=== PATIENT | male | born 1970 | race Caucasian/White ===

== ENCOUNTER 2017-06-30 09:22 | Emergency (ER) | payer BC ==
[2017-06-30] MEDS ORDERED: NS 0.9% 1000 ML* 1,000 ML IV ONE (11:38)
[2017-06-30 12:11] LABS: ABS Basophils 0.1 10^3/ul (0-0.2); ABS Eosinophils 0.1 10^3/ul (0-0.6); ABS Lymphocytes 1.4 10^3/ul (1.0-4.8); ABS Neutrophils 7.5 10^3/ul (1.5-7.7); ABS Nucleated RBC 0 10^3/ul; Eosinophil % 0.9 % (0-6); Hematocrit 48 % (42-52); Hemoglobin 16.9 g/dl (14.0-18.0); Mean Corpuscular HGB Conc 35 g/dl (31-36); Mean Corpuscular Hemoglobin 33 pg (27-31); Mean Corpuscular Volume 93 fL (80-94); Mean Platelet Volume 8.2 um3 (7.4-10.4); Nucleated Red Blood Cells % 0.3; Platelet Count 280 10^3/ul (150-450); Red Blood Count 5.17 10^6/ul (4.0-5.4); Red Cell Distribution Width 13 % (10.5-15)
[2017-06-30 12:32] LABS: EGFR Non-African American 118.9 (>60)
[2017-06-30 16:34] VITALS: BP 159/92
--- NOTE | 2017-06-30 17:03 | ED ---
Harvey Gamez Jennifer, scribed for Jesus Gallardo MD on 06/30/17 at 1136 . GI/ HPI - HPI Summary HPI Summary: The patient is a 47 y/o M who presents with water diarrhea and cramping for the past 5 days. The patient denies nausea and recent traveling. 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 - History of Current Complaint Chief Complaint: EDNauseaVomitDiarrh Time Seen by Provider: 06/30/17 09:44 Stated Complaint: DIARRHEA Hx Obtained From: Patient Onset/Duration: Started Days Ago - 5 days, Still Present Timing: Constant Severity: Mild Current Severity: Mild Pain Intensity: 0 Associated Signs and Symptoms: Positive: Other: - diarrhea, abd cramping. NEGATIVE: nausea Aggravating Factor(s): Nothing Alleviating Factor(s): Nothing - Allergy/Home Medications Allergies/Adverse Reactions: Allergies Allergy/AdvReac Type Severity Reaction Status Date / Time No Known Allergies Allergy Verified 06/30/17 09:38 PMH/Surg Hx/FS Hx/Imm Hx Endocrine/Hematology History: Denies: Hx Diabetes Cardiovascular History: Denies: Hx Hypertension Infectious Disease History: No Infectious Disease History: Denies: Traveled Outside the [place] in Last 30 Days - Family History Known Family History: Negative: Renal Disease - Social History Alcohol Use: Unknown Hx Substance Use: No Substance Use Type: Reports: None Smoking Status (MU): Unknown if Ever Smoked Review of Systems Negative: Fever Positive: Abdominal Pain - cramping, Diarrhea. Negative: Nausea All Other Systems Reviewed And Are Negative: Yes Physical Exam - Summary Physical Exam Summary: Appearance: The patient is well-nourished in no acute distress and in no acute pain. Skin: The skin is warm and dry and skin color reflects adequate perfusion. HEENT: The head is normocephalic and atraumatic. The pupils are equal and reactive. The conjunctivae are clear and without drainage. Nares are patent and without drainage. Mouth reveals moist mucous membranes and the throat is without erythema and exudate. The external ears are intact. The ear canals are patent and without drainage. The tympanic membranes are intact. Neck: the neck is supple with full range of motion and non-tender. There are no carotid bruits. There is no neck vein distension. Respiratory: Chest is non-tender. Lungs are clear to auscultation and breath sounds are symmetrical and equal. Cardiovascular: Heart is regular rate and rhythm. There is no murmur or rub auscultated. There is no peripheral edema and pulses are symmetrical and equal. Abdomen: The abdomen is soft and non-tender. There are normal bowel sounds heard in all four quadrants and there is no organomegaly palpated. Musculoskeletal: There is no back tenderness noted. Extremities are non-tender with full range of motion. There is good capillary refill. There is no peripheral edema or calf tenderness elicited. Neurological: Patient is alert and oriented to person, place and time. The patient has symmetrical motor strength in all four extremities. Cranial nerves are grossly intact. Deep tendon reflexes are symmetrical and equal in all four extremities. Psychiatric: The patient has an appropriate affect and does not exhibit any anxiety or depression. Triage Information Reviewed: Yes Vital Signs On Initial Exam: Initial Vitals Temp Pulse Resp BP Pulse Ox 98 F 110 20 114/72 98 06/30/17 09:33 06/30/17 09:33 06/30/17 09:33 06/30/17 09:33 06/30/17 09:33 Vital Signs Reviewed: Yes Diagnostics - Vital Signs Vital Signs Temp Pulse Resp BP Pulse Ox 06/30/17 09:33 98 F 110 20 114/72 98 - Laboratory Lab Results: Lab Results 06/30/17 06/30/17 Range/Units 11:43 11:43 WBC 10.0 (3.5-10.8) 10^3/ul RBC 5.17 (4.0-5.4) 10^6/ul Hgb 16.9 (14.0-18.0) g/dl Hct 48 (42-52) % MCV 93 (80-94) fL MCH 33 H (27-31) pg MCHC 35 (31-36) g/dl RDW 13 (10.5-15) % Plt Count 280 (150-450) 10^3/ul MPV 8.2 (7.4-10.4) um3 Neut % (Auto) 74.8 (38-83) % Lymph % (Auto) 14.0 L (25-47) % Gregory % (Auto) 9.7 H (0-7) % Eos % (Auto) 0.9 (0-6) % Baso % (Auto) 0.6 (0-2) % Absolute Neuts (auto) 7.5 (1.5-7.7) 10^3/ul Absolute Lymphs (auto) 1.4 (1.0-4.8) 10^3/ul Absolute Monos (auto) 1.0 H (0-0.8) 10^3/ul Absolute Eos (auto) 0.1 (0-0.6) 10^3/ul Absolute Basos (auto) 0.1 (0-0.2) 10^3/ul Absolute Nucleated RBC 0 10^3/ul Nucleated RBC % 0.3 Sodium 135 L (139-145) mmol/L Potassium 3.6 (3.5-5.0) mmol/L Chloride 102 (101-111) mmol/L Carbon Dioxide 22 (22-32) mmol/L Anion Gap 11 (2-11) mmol/L BUN 13 (6-24) mg/dL Creatinine 0.71 (0.67-1.17) mg/dL Est GFR ( Amer) 152.9 (>60) Est GFR (Non-Af Amer) 118.9 (>60) BUN/Creatinine Ratio 18.3 (8-20) Glucose 108 H (70-100) mg/dL Calcium 9.0 (8.6-10.3) mg/dL Total Bilirubin 0.70 (0.2-1.0) mg/dL AST 18 (13-39) U/L ALT 27 (7-52) U/L Alkaline Phosphatase 47 (34-104) U/L Total Protein 7.4 (6.4-8.9) g/dL Albumin 4.1 (3.2-5.2) g/dL Globulin 3.3 (2-4) g/dL Albumin/Globulin Ratio 1.2 (1-3) Result Diagrams: 06/30/17 11:43 06/30/17 11:43 Lab Statement: Any lab studies that have been ordered have been reviewed, and results considered in the medical decision making process. GIGU Course/Dx - Course Course Of Treatment: Mr. Moore presents with several days of multiple episodes of watery diarrhea accompalnied some mild cramping but no N/V. He was hyrated while labs were checked. His stool was positive for blood and fecal lactoferrin. I will treat him with Cip[ro while awaiting cultures. - Diagnoses Provider Diagnoses: Dysentery Discharge - Sign-Out/Discharge Documenting (check all that apply): Discharge/Admit/Transfer - Discharge Plan Condition: Stable Disposition: HOME Prescriptions: Ciprofloxacin TAB* [Cipro Tab*] 500 mg PO BID #20 tab Patient Education Materials: Acute Diarrhea (ED) Referrals: [facility] [Outside] Additional Instructions: Follow up with your primary care physician in three days. Return to the emergency department for any new or worsening symptoms. - Billing Disposition and Condition Condition: STABLE Disposition: HOME The documentation as recorded by the Harvey zabala Jennifer accurately reflects the service I personally performed and the decisions made by me, Jesus Gallardo MD.
--- NOTE | 2017-07-01 08:42 | ED ---
Progress - Progress Note Progress Note: Patient stool cultures are negative for C. difficile however positive for blood and lactoferrin. Patient was provided with a prescription for Cipro. No change in treatment at this time. Course/Dx - Course Course Of Treatment: Mr. Moore presents with several days of multiple episodes of watery diarrhea accompalnied some mild cramping but no N/V. He was hyrated while labs were checked. His stool was positive for blood and fecal lactoferrin. I will treat him with Cip[ro while awaiting cultures. - Diagnoses Provider Diagnoses: Dysentery Discharge - Sign-Out/Discharge Documenting (check all that apply): Post-Discharge Follow Up - Discharge Plan Condition: Stable Disposition: HOME Prescriptions: Ciprofloxacin TAB* [Cipro Tab*] 500 mg PO BID #20 tab Patient Education Materials: Acute Diarrhea (ED) Referrals: [facility] [place] [facility] [Outside] Additional Instructions: Follow up with your primary care physician in three days. Return to the emergency department for any new or worsening symptoms. - Billing Disposition and Condition Condition: STABLE Disposition: HOME
--- NOTE | 2017-07-03 02:50 | ED ---
Progress - Progress Note Progress Note: Patient stool cultures are negative for C. difficile however positive for blood and lactoferrin. Patient was provided with a prescription for Cipro. No change in treatment at this time. NO CHANGE IN TREATMENT. CONT WITH CIPRO Course/Dx - Course Course Of Treatment: Mr. Moore presents with several days of multiple episodes of watery diarrhea accompalnied some mild cramping but no N/V. He was hyrated while labs were checked. His stool was positive for blood and fecal lactoferrin. I will treat him with Cip[ro while awaiting cultures. - Diagnoses Provider Diagnoses: Dysentery Discharge - Sign-Out/Discharge Documenting (check all that apply): Post-Discharge Follow Up - Discharge Plan Condition: Stable Disposition: HOME Prescriptions: Ciprofloxacin TAB* [Cipro Tab*] 500 mg PO BID #20 tab Patient Education Materials: Acute Diarrhea (ED) Referrals: [facility] [place] [Outside] Additional Instructions: Follow up with your primary care physician in three days. Return to the emergency department for any new or worsening symptoms. - Billing Disposition and Condition Condition: STABLE Disposition: HOME
--- NOTE | 2017-07-03 06:43 | PN ---
Progress Note - Progress Note Date of Service: 06/30/17 Note: Pt. seen in ER 06/30/17 for watery diarrhea. Stool culture today is positive for campylobacter. He is currently on Cipro. No further treatment needed at this time.
== END 2017-06-30 16:33 | disposition home or self-care (01) ==
LOC: ED 09:22
DX: A09 Infectious gastroenteritis and colitis, unspecified (principal); R19.5 Other fecal abnormalities
CPT/HCPCS: 36415; 80053; 82272; 83630; 85025; 87045; 87046; 87077; 87493; 87899; 96360; 99283

== ENCOUNTER 2017-09-19 10:38 | Emergency (ER) | payer BC ==
--- NOTE | 2017-09-19 11:19 | ED ---
Upper Extremity Pain - HPI Summary HPI Summary: This is sagrario Mac documenting for attending Jesus Roland MD. This patient is a 47 year old M presenting to [facility] accompanied by a woman with a chief complaint of painful, erythematous, bilateral hand edema since Friday night. The patient rates the pain 4/10 in severity. Patient reports BM every 2- 3 hours, diarrhea, nausea, chills, and dehydration. Patient denies vomiting, dizziness, and LANDIN. Pt came in 4 months ago for a bacterial infection accompanied by fever where he was given antibiotics; symptoms were alleviated after 2 days. Pt reports he has a new puppy around his home that likes to chew on his water bottle. Pt reports the symptoms started following EtOH use. Pt has been drinking a lot of water and had a water bottle in the ED during the exam. [place], occasional EtOH use, marijuana use, nonsmoker. Pt gave his permission to give a stool sample. No PMHx colitis, chronic bowel diseases. PMHx kidney stone. - History of Current Complaint Chief Complaint: EDNauseaVomitDiarrh Stated Complaint: GENERAL ILLNESS Time Seen by Provider: 09/19/17 10:56 Hx Obtained From: Patient Mechanism Of Injury: Other - swelling Onset/Duration: Started Days Ago - 2 Timing: Constant Severity Initially: Moderate Severity Currently: Moderate Pain Location: Hand - both Character: Stiffness Aggravating Factor(s): Other - clenching fist Associated Signs & Symptoms: Positive: Swelling, Redness - Allergies/Home Medications Allergies/Adverse Reactions: Allergies Allergy/AdvReac Type Severity Reaction Status Date / Time No Known Allergies Allergy Verified 09/19/17 10:53 PMH/Surg Hx/FS Hx/Imm Hx Endocrine/Hematology History: Denies: Hx Diabetes Cardiovascular History: Denies: Hx Hypertension History: Reports: Hx Kidney Stones EENT History: Denies: Hx Deafness Infectious Disease History: No Infectious Disease History: Denies: Traveled Outside the [place] in Last 30 Days - Family History Known Family History: Negative: Renal Disease - Social History Alcohol Use: Occasionally Hx Substance Use: No Substance Use Type: Reports: Marijuana Smoking Status (MU): Unknown if Ever Smoked Review of Systems Positive: Chills Positive: Diarrhea, Nausea. Negative: Vomiting Positive: Edema - hands Negative: Headache, Numbness All Other Systems Reviewed And Are Negative: Yes Physical Exam - Summary Physical Exam Summary: Appearance: Well-appearing, Well-nourished, lying in bed comfortably. Skin: Warm, dry, no obvious rash Eyes: sclera anicteric, no conjunctival pallor ENT: mucous membranes moist, pharynx appears normal Neck: Supple, nontender Respiratory: Clear to auscultation, no signs of respiratory distress Cardiovascular: Normal S1, S2. No murmurs. Normal distal pulses in tibial and radial bilaterally. Abdomen: Soft, nontender, normal active bowel sounds present Musculoskeletal: Strength/ROM Intact. Mild synovitis MCP joints bilaterally. Mild swelling of the hands. Neurological: A&Ox3, awake and alert, mentation is normal, speech is fluent and appropriate Psychiatric: affect is normal, does not appear anxious or depressed Triage Information Reviewed: Yes Vital Signs On Initial Exam: Initial Vitals Temp Pulse Resp BP Pulse Ox 99.1 F 99 18 157/110 97 09/19/17 10:49 09/19/17 10:49 09/19/17 10:49 09/19/17 10:49 09/19/17 10:49 Vital Signs Reviewed: Yes Diagnostics - Vital Signs Vital Signs Temp Pulse Resp BP Pulse Ox 09/19/17 10:49 99.1 F 99 18 157/110 97 - Laboratory Lab Statement: Any lab studies that have been ordered have been reviewed, and results considered in the medical decision making process. Course/Dx - Diagnoses Provider Diagnoses: Campylobacter diarrhea Discharge - Sign-Out/Discharge Documenting (check all that apply): Patient Departure - Discharge Plan Condition: Good Disposition: HOME Prescriptions: Azithromycin TAB* [Zithromax TAB (Z-NANCY) 250 mg #6 tabs] 2 tab PO .TODAY, THEN 1 DAILY #1 nancy Patient Education Materials: Acute Diarrhea (ED) Referrals: [facility] [Outside] - 1 Week No Primary Care Phys,NOPCP [Primary Care Provider] - Additional Instructions: The discomfort on your hands could definitely be related to the infection you had in your gut, and if it worsens/persists you should seek the care of a physician, probably a horticulture teacher. The stool culture takes a few days to come back. Also, campylobacter can be transmitted by pets for farm animals, so it might make sense to have your pet evaluated by a vet. - Billing Disposition and Condition Condition: GOOD Disposition: Home
[2017-09-19 12:08] VITALS: BP 149/71
--- NOTE | 2017-09-21 14:01 | PN ---
Progress Note - Progress Note Date of Service: 09/19/17 Note: Campylobacter grew from stool culture Patient was given azithromycin prior to discharge This is appropriate treatment Nothing further at this time
== END 2017-09-19 12:06 | disposition home or self-care (01) ==
LOC: ED 10:38
DX: A04.5 Campylobacter enteritis (principal); M79.642 Pain in left hand; M79.641 Pain in right hand; Z87.442 Personal history of urinary calculi
CPT/HCPCS: 87045; 87046; 87077; 87493; 87899; 99282

== ENCOUNTER 2018-12-09 09:21 | Emergency (ER) | payer BC ==
[2018-12-09] MEDS: Ondansetron INJ* 2 MG/ML VIAL IV ONE (09:47)
[2018-12-09] MEDS: fentaNYL* 50 MCG/ML 2 ML VIAL (100 MCG VIAL) IV SLOW PU ONE ×2 (09:48→11:50)
--- NOTE | 2018-12-09 11:08 | ED ---
ED Sedation - Procedural Sedation/Analgesia Sedation Course: Emergency Airway Equipment Available, Informed Consent Obtained , Time Out Completed, End-tidal Capnography Utilized Adverse Reactions Experienced by Patient: None Mallampati Classification: Class I ASA Classification: Class I: Normal/Healthy Diagnosis: shoulder dislocation Pre-Procedural Heart: No Murmur Pre-Procedural Lungs: Clear Auscultation Comment/Plan of Care: 150mg propofol with 50mg fentanyl for analgesia Provider Procedure Attestation: With My Signature Below, I Attest to have Personally Reviewed and Agree with the Pre-Sedation History and Pre-Service Assessment Update Cleared for Moderate Sedation: Yes Pre-Procedural Diagnosis: shoulder dislocation Post-Procedural Diagnosis: shoulder dislocation Procedure: shoulder joint reduction Estimated Blood Loss: None Specimen(s): None Findings: None Implants/Tubes/Drains Placed: None - Attestation Statements Document Initiated by Laura: Yes Documenting Scribe: Ana Almendarez Provider For Whom Laura is Documenting (Include Credential): Andi Montano MD. Scribe Attestation: IAna, scribed for Andi Montano MD. on 12/09/18 at 1158. Scribe Documentation Reviewed: Yes Provider Attestation: The documentation as recorded by the efrainibeAna accurately reflects the service I personally performed and the decisions made by , Andi Montano MD. Status of Scribe Document: Viewed
[2018-12-09] MEDS: KETAMINE HCL* 50 MG/ML 10 ML VIAL IV ONE (11:11)
[2018-12-09] MEDS ORDERED: Naloxone* 0.4 MG/ML 10 ML VIAL ONE (11:16)
[2018-12-09] MEDS ORDERED: Flumazenil* 0.1 MG/ML 5 ML MDV ONE (11:16)
[2018-12-09] MEDS: Propofol* 10 MG/ML 20 ML BTL IV PUSH ONE (11:24)
[2018-12-09] MEDS: Propofol* 10 MG/ML 50 ML BTL IV PUSH ONE (11:51)
--- NOTE | 2018-12-09 12:10 | ED ---
Upper Extremity Pain - HPI Summary HPI Summary: This patient is a 48-year-old male who presents to the ED with a shoulder dislocation. He states this occurred at approximately 11 PM last night when he was walking his dog. He states his dog ran out in front of him and it pulled the left shoulder. He states he did not want to wake his so he was able to hold the arm in position of less pain until this morning when he was able to come to the ED. He is endorsing a 10/10 pain into the shoulder without radiation otherwise. Denies any numbness or tingling. Denies any color or temperature changes throughout the arm. He has never dislocated this arm in the past. Denies any previous fractures. He has not taken any medication prior to arrival. He does state alcohol was involved. Endorses an abrasion to the left medial forearm as well as the left upper head. He denies loss of consciousness, denies headache, denies any other symptoms at this time. - History of Current Complaint Chief Complaint: EDExtremityUpper Stated Complaint: SHOULDER INJURY Time Seen by Provider: 12/09/18 09:38 Hx Obtained From: Patient Mechanism Of Injury: Blunt Trauma Onset/Duration: Started Hours Ago Timing: Constant Severity Initially: Severe Severity Currently: Severe Character: Aching, Throbbing Aggravating Factor(s): Movement, Lifting, Flexion, Extension, Internal/External Rotation Alleviating Factor(s): Rest, Ice Associated Signs & Symptoms: Negative: Swelling, Redness, Bruising, Fever, Weakness, Numbness/Tingling Related History: Dominant Hand Right - Risk Factors Non-Orthopedic Risk Factor: Negative DVT Risk Factors: Negative Septic Arthritis Risk Factor: Negative Compartment Syndrome Risk Factors: Pain - Allergies/Home Medications Allergies/Adverse Reactions: Allergies Allergy/AdvReac Type Severity Reaction Status Date / Time No Known Allergies Allergy Verified 12/09/18 09:52 Home Medications: Home Medications NK [No Home Medications Reported] 12/09/18 [History Confirmed 12/09/18] PMH/Surg Hx/FS Hx/Imm Hx Previously Healthy: Yes Endocrine/Hematology History: Denies: Hx Diabetes Cardiovascular History: Denies: Hx Hypertension History: Reports: Hx Kidney Stones Sensory History: Denies: Hx Deafness - Immunization History Hx Pertussis Vaccination: No Immunizations Up to Date: Yes Infectious Disease History: No Infectious Disease History: Denies: Traveled Outside the [place] in Last 30 Days - Family History Known Family History: Positive: Unknown Negative: Renal Disease - Social History Occupation: Employed Full-time Lives: With Family Alcohol Use: Occasionally Hx Substance Use: No Substance Use Type: Reports: Marijuana Hx Tobacco Use: No Smoking Status (MU): Never Smoked Tobacco Review of Systems Negative: Fever, Chills, Fatigue, Skin Diaphoresis Negative: Palpitations, Chest Pain Negative: Shortness Of Breath, Cough Genitourinary: Negative Positive: no symptoms reported, see HPI Positive: Arthralgia - left shoulder disloation. Negative: Myalgia Neurological: Negative All Other Systems Reviewed And Are Negative: Yes Physical Exam Triage Information Reviewed: Yes Vital Signs On Initial Exam: Initial Vitals Temp Pulse Resp BP Pulse Ox 98.5 F 122 16 170/124 97 12/09/18 09:24 12/09/18 09:24 12/09/18 09:24 12/09/18 09:24 12/09/18 09:24 Vital Signs Reviewed: Yes Appearance: Positive: Well-Appearing, Well-Nourished, Pain Distress Skin: Positive: Warm, Skin Color Reflects Adequate Perfusion Eyes: Positive: EOMI, AP, Conjunctiva Clear Neck: Positive: Supple, No Lymphadenopathy Respiratory/Lung Sounds: Positive: Breath Sounds Present Cardiovascular: Positive: Pulses are Symmetrical in both Upper and Lower Extremities Musculoskeletal: Positive: Pain @ - left shoulder pain - obvious deformity Neurological: Positive: Sensory/Motor Intact, Alert, Oriented to Person Place, Time, Speech Normal Psychiatric: Positive: Affect/Mood Appropriate Procedures - Sedation Patient Received Moderate/Deep Sedation with Procedure: Yes Are You The Provider Who Administered The Sedation: Burns of Provider Whom Sedated Patient: Andi Montano T - Propofol 150mg Diagnostics - Vital Signs Vital Signs Temp Pulse Resp BP Pulse Ox 12/09/18 11:42 134/103 12/09/18 11:35 114 167/119 97 12/09/18 11:27 101 158/117 99 12/09/18 11:13 118 99 12/09/18 11:12 114 167/119 98 12/09/18 09:48 22 12/09/18 09:24 98.5 F 122 16 170/124 97 - Laboratory Lab Statement: Any lab studies that have been ordered have been reviewed, and results considered in the medical decision making process. Course/Dx - Course Course Of Treatment: Patient evaluated for possible anterior dislocation left shoulder. X-rays were obtained upon patient arrival which shows an anterior dislocation. On physical examination, this arm appears to be slightly abducted , externally rotated but hand is internally rotated. The acromion appears prominent. Loss of normal rounded appearance of the shoulder. NV intact. Patient was given 75 g fentanyl with some relief. Discussed case with Dr. Montano who is able to give ketamine 30 mg. Attempted reduction with traction /countertraction. Unable to reduce. Patient was subsequently given propofol 150 mg and shoulder was reduced with using down for down traction technique pain. Postreduction x-rays show adequately reduced left shoulder. Procedural sedation, see separate note. Patient tolerated well. Vital signs stable. - Diagnoses Differential Diagnosis/HQI/PQRI: Positive: Fracture (Closed), Strain, Sprain Provider Diagnoses: Shoulder dislocation Discharge ED - Sign-Out/Discharge Documenting (check all that apply): Patient Departure - Discharge Plan Condition: Stable Disposition: HOME Patient Education Materials: Shoulder Dislocation (ED), Procedural Sedation (ED ) Referrals: Tim Grewal MD [Medical Doctor] - 1 Week Logan Rodriguez NP [Primary Care Provider] - Additional Instructions: Early mobilization is important, and you should keep the arm in the sling x 1 week. Gentle pendular motion exercises should be performed during the immobilization period to reduce the risk of frozen shoulder. For any worsening symptoms, please contact our orthopedic physician for an appt - Billing Disposition and Condition Condition: STABLE Disposition: Home - Attestation Statements Provider Attestation: I have seen the patient with the SUSAN and agree with the plan and documentation below except as noted: 48-year-old male presents with left shoulder secretion. Attempted to reduced with pain dose of ketamine, patient still is significant pain, therefore decision to use moderate sedation w propofol. Patient tolerated sedation well, shoulder reduced, post reduction PMS intact. Post reduction x-ray shows Hill-Sachs deformity of the left shoulder, patient can follow-up with orthopedics PRN. Andi Montano MD
[2018-12-09 12:32] VITALS: BP 153/95
== END 2018-12-09 12:30 | disposition home or self-care (01) ==
LOC: ED 09:21
DX: S43.015A Anterior dislocation of left humerus, initial encounter (principal); S42.295A Other nondisplaced fracture of upper end of left humerus, initial encounter for closed fracture; X50.0XXA Overexertion from strenuous movement or load, initial encounter; Y93.K1 Activity, walking an animal; Y92.9 Unspecified place or not applicable; Z87.442 Personal history of urinary calculi
CPT/HCPCS: 23655; 96374; 96375; 96376; 99283; J2310; J2405; J2704; J3010